=== PATIENT | female | born 1955 | race Caucasian/White ===

== ENCOUNTER 2016-08-06 13:02 | Emergency (ER) | payer BC, MEDICAID ==
[2016-08-06 13:29] VITALS: RESP 16
[2016-08-06] MEDS ORDERED: DIAZEPAM 5 MG TAB PO ONE (15:15)
[2016-08-06 16:13] VITALS: BP 161/106; PULSE 82; TEMP 98.1; O2SAT 93
--- NOTE | 2016-08-06 16:33 | UCPHY ---
H & P Time Seen by Provider: 08/06/16 14:54 Patient Type: New HPI/ROS: This patient describes atraumatic onset of left lateral neck pain 4 days prior to arrival. She describes the pain is initially achy progressing to a sharp pain extending to the trapezius. She has difficulty sleeping over the last 2 nights due to the pain. She has tried Advil 400 mg-last dose at 10:00 a.m. as well as Tylenol with minimal improvement. She has not had this pain before. Peak intensity 12/04. Recent history is notable for a right humerus fracture 5 weeks ago so she has been using her left nondominant arm more than usual since then. ROS: No acute injuries. Head injuries. No numbness or tingling. No focal weakness. No bowel or bladder incontinence. No fevers or chills. 7 point ROS is otherwise negative. Past Medical/Surgical History: Otherwise healthy exception of recent right arm fracture Smoking Status: Never smoked Physical Exam: Physical Exam Vital signs are normal. General: Pleasant moderately obese female No acute distress HEENT: Atraumatic. Eyes: Pupils equal and react to light. Extraocular motions are intact. Neck: Patient has no midline tenderness. She has left lateral paraspinous muscular tenderness extends in the left trapezius with mild spasm in the left trapezius. She has increased pain with lateral flexion away from the affected side with no change in pain with flexion toward the affected side. Minimal discomfort with forward flexion no difficulty with extension of the neck. Back: Nontender. Lungs: No respiratory distress. Cardiac: Brisk capillary refill is intact throughout. Skin: No rash or pallor. Neuro: Alert and oriented x3. She maintains normal light touch sensory exam bilateral upper extremities and 5/5 strength bilateral upper extremities normal light touch sensation 5/5 strength bilateral lower extremities. Initial differential diagnosis: Muscle strain of neck, disc disease. Osteoarthritis Constitutional: Initial Vital Signs Temperature (C) 36.8 C 08/06/16 13:24 Heart Rate 86 08/06/16 13:24 Respiratory Rate 16 08/06/16 13:24 Blood Pressure 182/104 H 08/06/16 13:24 O2 Sat (%) 96 08/06/16 13:24 O2 Delivery Mode Room Air Allergies/Adverse Reactions: No Known Allergies Allergy (Unverified 08/06/16 13:29) Home Medications: Medication Instructions Recorded Methocarbamol [Robaxin 750 mg (*)] 750 - 1,500 mg PO QID PRN #30 tab 08/06/16 Vitamin D3 08/06/16 MDM/Departure - MDM Diagnostics: Cervical spine x-ray: Significant degenerative changes at multiple levels. By my interpretation Foraminal narrowing at C5-6 noted by Radiology. Medications Given: Discontinued Medications Diazepam (Valium) 5 mg PO EDNOW ONE Stop: 08/06/16 15:16 Last Admin: 08/06/16 15:44 Dose: 5 mg ED Course/Re-evaluation: Ibuprofen Valium p.o. with partial improvement. I counseled regarding the radiographic findings. While she has significant did chin degenerative changes she has no radicular findings on exam. I did provide Dr. Yee follow-up phone number for further evaluation for any ongoing symptoms. - Depart Disposition: Home, Routine, Self-Care Clinical Impression: Neck pain Condition: Good Instructions: Neck Pain (ED) Additional Instructions: Diagnosis: 1. Neck pain 2. Osteoarthritis Plan: [id number] mg per 6 hours as needed for pain Methocarbamol muscle relaxant in addition as needed Tylenol in addition if needed Follow up with Dr. Yee for any ongoing symptoms despite the treatment plan. Prescriptions: Methocarbamol [Robaxin 750 mg (*)] 750 - 1,500 mg PO QID PRN #30 tab PRN Reason: Muscle Spasms Referrals: Nella Pacheco MD [Primary Care Provider] - As per Instructions Tessa Yee MD [Medical Doctor] - As per Instructions - PQRS PQRS Measurement: NA
== END 2016-08-06 16:43 | disposition home or self-care (01) ==
LOC: CED 13:02
DX: M54.2 Cervicalgia (principal)
CPT/HCPCS: 72050-PO; 99203-PO; G0463-PO

== ENCOUNTER → 2016-11-24 | Outpatient (CLI) | payer MEDICAID | LOC: CIMAGING 08:25 | PROVIDERS: ATTEND Internal Medicine | DX: Z12.31 Encounter for screening mammogram for malignant neoplasm of breast (principal) | CPT/HCPCS: G0202 ==

== ENCOUNTER → 2017-01-27 | Outpatient (CLI) | payer MEDICAID | LOC: FIMAGING 11:07 | PROVIDERS: ATTEND Orthopaedic Surgery | DX: S83.241A Other tear of medial meniscus, current injury, right knee, initial encounter (principal); M25.461 Effusion, right knee; M71.21 Synovial cyst of popliteal space [Baker], right knee ==